=== PATIENT | male | born 1965 | race Two or more races ===

== ENCOUNTER 2021-04-11 20:49 | Emergency (ER) | payer SELFPAY ==
[~2021-04-11] VITALS: Ht 182.9 cm; Wt 90.0 kg
[2021-04-11 20:51] VITALS: BP 145/85
== END 2021-04-11 22:21 | disposition left against medical advice (07) ==
LOC: ER 20:49
DX: S62.601A Fracture of unspecified phalanx of left index finger, initial encounter for closed fracture (principal); X58.XXXA Exposure to other specified factors, initial encounter; Y93.89 Activity, other specified; Y92.89 Other specified places as the place of occurrence of the external cause; Y99.8 Other external cause status
CPT/HCPCS: 29130; 73120; 99283